=== PATIENT | female | born 1960 | race American Indian/Alaskan Native ===

== ENCOUNTER 2017-09-20 19:08 | Observation (INO) | payer OTHER, SELFPAY ==
[2017-09-20] VITALS (8 sets, daily range): BP systolic 83–130; BP diastolic 48–79; PULSE 84–115; RESP 17–27; TEMP 37.1; O2SAT 94–100; BMI 19.5
--- NOTE | 2017-09-20 19:49 | DI.RAD.S_ITS ---
PROCEDURE: XR CHEST 2V INDICATIONS: cough, sob TECHNIQUE: 2 views of the chest were acquired. COMPARISON: None. FINDINGS: Surgical changes and devices: None. Lungs and pleura: No pleural effusions or pneumothorax. Lungs are clear. Mediastinum: Mediastinal contours are normal. Heart size is normal. Bones and chest wall: No suspicious bony abnormalities. Soft tissues appear unremarkable. IMPRESSION: No acute cardiopulmonary disease process. Dictated by: Flor Seymour MD, PhD on 09/20/2017 at 20:59 Approved by: Flor Seymour MD, PhD on 09/20/2017 at 21:00
[2017-09-20] MEDS: ALBUTEROL/IPRATROPIUM 3 ML AMPUL INH ×3 (19:59)
--- NOTE | 2017-09-20 19:59 | PC.NURSE ---
Persistent cough x2 days, increasing soa, pt reports ran out of prn albuterol, coarse/wheezing bilat on ausc, reports home temp of 100.1f, denies vomiting/diarrhea/cp or other sx
[2017-09-20] MEDS: SODIUM CHLORIDE 0.9% 1,000 ML 1000 ML IV (21:39)
[2017-09-20] MEDS: DEXAMETHASONE 4 MG TABLET 16 MG PO (21:40)
[2017-09-20] MEDS: AZITHROMYCIN 250 MG TABLET 500 MG PO (21:40)
[2017-09-20 21:41] LABS: Add Manual Diff / Slide Review NO; Basophils Percent Auto 0.5 % (0-2); Eosinophils Percent Auto 1.7 % (2-4); Hematocrit 45.5 % (36-46); Hemoglobin 15.3 g/dL (12.0-16.0); Lymphocytes Percent Auto 7.1 % (25-40); Mean Corpuscular HGB Conc 33.5 % (30-36); Mean Corpuscular Hemoglobin 30.3 PG (26-34); Mean Corpuscular Volume 90.3 fL (80-100); Monocytes Percent Auto 4.6 % (3-14); Neutrophils Absolute Auto 11300 /uL (3000-5900); Neutrophils Percent Auto 86.1 % (50-75); Platelet Count 232 X10^3/uL (150-400); Red Blood Cell Count 5.04 X10^6/uL (4.0-5.2); Red Cell Distribution Width 13.3 % (11.6-14.8); White Blood Cell Count 13.1 X10^3/uL (4.5-11.0)
[2017-09-20 21:49] LABS: BUN Creatinine Ratio 14.4 (6-22); Blood Urea Nitrogen 13 mg/dL (7-17); Calcium 9.3 mg/dL (8.4-10.2); Carbon Dioxide 26 mmol/L (22-32); Chloride 104 mmol/L (98-107); Estimated Glomerular Filt Rate > 60.0 mL/min (>60); Glucose 158 mg/dL (70-100); Sodium 142 mmol/L (137-145)
[2017-09-20 21:52] LABS: D Dimer < 200 ng/mL (<230); HEMOLYSIS 52 (0-50)
[2017-09-20 21:55] LABS: Potassium 2.6 mmol/L (3.4-5.1)
[2017-09-20 22:02] LABS: Troponin I < 0.012 ng/mL (0.01-0.034)
[2017-09-20] MEDS: PROMETHAZINE 12.5 MG in SODIUM CHLORIDE 0.9% 50 ML 202 ML IV (22:24)
--- NOTE | 2017-09-20 22:39 | PC.NURSE ---
low bp 86sys notified, pt reports relief from SOA following neb treatments, reports continuing nausea, denies pain or discomfort
[2017-09-20] MEDS: MAGNESIUM SULFATE 2 GM/50 ML PIGGYBACK IV (23:19)
[2017-09-20] MEDS: POTASSIUM CHLORIDE IN WATER 40 MEQ/400 ML PIGGYBACK 100 MEQ IV (23:19)
[2017-09-20 23:28] LABS: Lactate (Lactic Acid) 2.6 mmol/L (0.7-2.1)
[2017-09-20 23:57] LABS: Procalcitonin < 0.05 ng/mL (<0.5)
[2017-09-20 23:58] LABS: Magnesium 1.8 mg/dL (1.6-2.3)
[2017-09-21] VITALS (10 sets, daily range): BP systolic 86–109; BP diastolic 48–73; PULSE 62–92; RESP 16–18; TEMP 36.7–38; O2SAT 91–99; BMI 19.5
[2017-09-21] MEDS: SODIUM CHLORIDE 0.9% 1,000 ML 1000 ML IV ×2 (00:36→04:00)
[2017-09-21 03:16] LABS: Reflexed Lactate in 2 Hours Y
[2017-09-21 03:26] LABS: Lactate 2HR (Lactic Acid Rflx) 2.5 mmol/L (0.7-2.1)
[2017-09-21 03:56] LABS: RBC Urine None Seen (0-5/HPF)
[2017-09-21 03:58] LABS: Appearance Urine UA CLEAR; Bilirubin Urine UA NEGATIVE (NEGATIVE); Color Urine UA YELLOW; Glucose Urine UA NEGATIVE (Normal); Ketones Urine UA NEGATIVE (NEGATIVE); Leukocyte Esterase Urine UA 1+ (NEGATIVE); Nitrite Urine UA Negative (Negative); Occult Blood Urine UA NEGATIVE (Negative); Protein Urine UA NEGATIVE (Negative); Specific Gravity Urine UA >=1.030 (1.000-1.035); Urobilinogen Urine UA 0.2 E.U./dL (0.2)
[2017-09-21 04:04] LABS: Bacteria Urine Moderate (10-30); WBC Urine 10-30/HPF (0-5/HPF)
[2017-09-21 04:05] LABS: Culture Indicated Urine Specimen Cultured; Mucus Urine 1+ (Negative); Squamous Epithelial Cell Urine 1-5 /HPF
[2017-09-21 04:19] LABS: BUN Creatinine Ratio 14.3 (6-22); Blood Urea Nitrogen 10 mg/dL (7-17); Calcium 8.2 mg/dL (8.4-10.2); Carbon Dioxide 20 mmol/L (22-32); Chloride 112 mmol/L (98-107); Cholesterol 140 mg/dL (140-199); Estimated Glomerular Filt Rate > 60.0 mL/min (>60); Glucose 137 mg/dL (70-100); HDL Cholesterol 48 mg/dL (40-60); HEMOLYSIS < 15 (0-50); LDL Cholesterol Calculated 85 mg/dL (<100); Lipase 49 U/L (23-300); Potassium 4.4 mmol/L (3.4-5.1); Sodium 142 mmol/L (137-145); Triglycerides 34 mg/dL (35-150)
--- NOTE | 2017-09-21 04:31 | ED.URI ---
HPI - URI/Sore Throat General Chief Complaint: Upper Respiratory Symptoms Stated Complaint: cough,trouble breathing,cold Time Seen by Provider: 09/20/17 19:21 History of Present Illness HPI Narrative: HPI 57-year-old female with a history of congenital COPD and exercise-induced asthma presents for evaluation of 4-5 days of nonproductive cough, wheezing, shortness of breath after being exposed to the family member with a URI. Patient also reports a history of a TBI, she is a long-standing pattern of secondary vertiginous symptoms, whenever she is coughing this will exacerbate her vertiginous symptoms leading to emesis. Patient reports that she has had her typical exacerbation of this nausea and emesis over the last 2 to 3 days with her heavy coughing. * PE risk factors: denies recent immobilization, leg trauma, estrogen use, surgery in the last four weeks, hemoptysis, or malignancy in the last 6 months. Notes a family history of unprovoked DVTs. * Smoking: distant social smoking history * Inhaler(s): albuterol, out of current prescription. * CHF: denies weight gain, orthopnea, or diuretic use. M/S/F/SocHx notable for: please see HPI; remainder reviewed with patient and in chart. ROS: Negative constitutional, eye, cardiovascular, pulmonary, GI, , MSK, skin, neurologic, psychiatric, endocrine unless noted in the HPI. Exam Gen: pleasant, uncomfortable appearing, frequent nonproductive cough and faintly audible wheezing. HEENT: NC, AT, PEERL, EOMI, trachea midline. Resp: diffuse expiratory wheezing throughout all lung moore, mildly increased work of breathing. Card: RRR with no M/R/G, no crackles in lung bases, no pedal edema, no JVD appreciated. GI: NT/ND Vascular: Both ankles, calves, and thighs of equal size, no calf tenderness to palpation bilaterally. MSK: No chest wall TTP. No visible deformities, strength and tone WNL. Skin: Normal color with no visible lesions. Neuro: AO x 3, no facial asymmetry, vision and hearing WNL. Psych: Mood and affect appropriate. Labs / Imaging (pertinent): WBC 13.1, Hb 15.3, Na 142, K 2.6, magnesium 1.8, lactic acid 2.6 TSH 10.40, free T4 0.0, troponin <0.012, pro-calcitonin <0.05, d-dimer <200 EKG: SR at 89 bpm, no WI segment depressions, no new ST segment changes, new LBBB, or T-wave changes that would suggest acute ischemia. CXR: No acute cardiopulmonary disease process. UA - 1+ leukocyte esterase, 10-30 WBCs, 1-5 squamous epithelial cells, 10-30 bacteria, negative nitrate. MDM Previous chart, nursing note, and vitals reviewed. A: 57-year-old female with a history of congenital COPD and exercise-induced asthma presents for evaluation of 4-5 days of nonproductive cough, wheezing, shortness of breath after being exposed to the family member with a URI. DDx: pneumonia, reactive airway disease / COPD / Asthma, bronchitis, pneumothorax, anxiety, PE, CHF, pleural effusion, pericardial effusion, ACS. Evaluation: suspect a viral trigger of the patient's COPD exacerbation, chest x-ray without focal infiltrate, pro-calcitonin negative, mild leukocytosis that was initially suspected to be secondary to stress demargination and/or the viral process. Patient was given DuoNeb ?3, 500 mg azithromycin, 12 mg dexamethasone given for symptomatic treatment. As a patient endorsed mild nausea secondary to her TBI exacerbation (patient's long-standing history of nausea and vomiting when her TBI is exacerbated by coughing - as she is been doing for the last several days) she was initially thought to have dehydration and hypokalemia secondary to the patient's nausea and vomiting. The patient rehydrated (2 L NS), given potassium and magnesium supplementation, and a repeat lactic was drawn, this remained elevated at 2.5. Repeat evaluation with patient remaining comfortable, no clear evidence of active infectious process, but concern for leukocytosis and an ongoing lactic acid elevation led to expansion the differential. Blood cultures drawn, urinalysis was obtained, this is consistent with infection, tentatively the patient is thought to have sepsis secondary to a UTI. Ceftriaxone given to complete coverage for a UTI. In intrabdominal source was considered, but as the patient had no abdominal tenderness on initial evaluation or on repeat at time of admission this is felt to be unlikely, emerging imaging not presently warranted. With regards to alternate causes of the patient's symptoms, strongly doubt PE given the low pretest probability (Well's score 0), and a negative d-dimer which is appropriate for PE rule out/risk stratification. Exam and imaging without evidence of CHF. Impression: COPD exacerbation, UTI, sepsis (please reference below for remainder of encounter information) Evan' (Signs & Sx of DVT - 0, PE is #1 or equally likelihood - 0, HR > 100 - 0, immobilization of >=3 days or surgery in last 28 days - 0, prior DVT or PE - 0, hemoptysis - 0, malignancy w/ tx in last 6 mo or palliative - 0). Critical Care Time Organ system(s): Cardiopulmonary Intervention: Assessment of the patient, interpretation of studies, communication related to patient care. Time: 30 minutes were spent directly related to patient care exclusive of separately billed procedures. Related Data Home Medications Medication Instructions Recorded Confirmed levothyroxine [Synthroid] #0 10/20/16 meclizine #0 10/20/16 ondansetron HCl [Zofran] 8 mg PO TID #0 10/20/16 Previous Rx's Medication Instructions Recorded ciprofloxacin HCl [Cipro] 500 mg PO BID #20 tab 10/20/16 Allergies Allergy/AdvReac Type Severity Reaction Status Date / Time Sulfa (Sulfonamide Allergy Intermediate Unverified 07/01/17 12:57 Antibiotics) [SULFA (SULFONAMIDE ANTIBIOTICS)] NARCOTICS Allergy Intermediate Uncoded 07/01/17 12:57 STEROIDS Allergy Intermediate Uncoded 07/01/17 12:57 [facility] Social History Smoking Status: Never smoker Exam Initial Vital Signs Initial Vital Signs: Vital Signs Temperature 98.8 F 09/20/17 19:11 Pulse Rate 106 H 09/20/17 19:11 Respiratory Rate 24 09/20/17 19:11 Blood Pressure 116/72 09/20/17 19:11 Pulse Oximetry 95 09/20/17 19:11 Course Orders Ordered: ED Orders 09/20/17 19:49 XR chest 2V Stat 09/20/17 19:50 EKG-12 Lead Stat 09/20/17 21:25 Basic Metabolic Panel Stat Complete Blood Count AUTO DIFF Stat D Dimer Stat Free T4 Free Thyroxine Stat Magnesium Stat Procalcitonin Stat Thyroid Stimulating Hormone Stat Troponin I Stat 09/20/17 23:10 Lactate (Lactic Acid) Stat 09/21/17 03:00 Lactate 4HR (Lactic Acid Rflx) Stat 09/21/17 03:45 Urinalysis and Microscopic Stat Urine Culture Stat 09/21/17 03:56 Basic Metabolic Panel Stat Blood Culture Stat Lipase Stat Lipid Panel Stat Albuterol/Ipratropium (Duoneb) 3 ml INH Q1H PRN PRN Reason: Shortness Of Breath Last Admin: 09/20/17 19:59 Dose: 3 ml Potassium Phosphate 10 mmol/ (Sodium Chloride) 1,003.3333 mls @ 100 mls/hr IV CONT MAURICE Last Admin: 09/20/17 23:19 Dose: Not Given Ceftriaxone Sodium/Dextrose (Rocephin) 1 gm in 50 mls @ 100 mls/hr IV NOW ONE Stop: 09/21/17 04:50 Discontinued Medications Albuterol/Ipratropium (Duoneb) 3 ml INH NOW ONE Stop: 09/20/17 19:42 Last Admin: 09/20/17 19:59 Dose: 3 ml Albuterol/Ipratropium (Duoneb) 3 ml INH NOW ONE Stop: 09/20/17 19:50 Last Admin: 09/20/17 19:59 Dose: 3 ml Azithromycin (Zithromax) 500 mg PO NOW ONE Stop: 09/20/17 19:50 Last Admin: 09/20/17 21:40 Dose: 500 mg Dexamethasone (Decadron) 16 mg PO NOW ONE Stop: 09/20/17 19:50 Last Admin: 09/20/17 21:40 Dose: 16 mg Sodium Chloride (Normal Saline 0.9%) 1,000 mls @ 1,000 mls/hr IV BOLUS ONE Stop: 09/20/17 20:48 Last Infusion: 09/20/17 22:42 Dose: 0 mls/hr Admin: 09/20/17 21:39 Dose: 1,000 mls/hr Magnesium Sulfate (Magnesium Sulfate) 2 gm in 50 mls @ 25 mls/hr IV NOW ONE Stop: 09/21/17 00:04 Last Infusion: 09/21/17 01:10 Dose: 0 mls/hr Admin: 09/20/17 23:19 Dose: 25 mls/hr Promethazine HCl 12.5 mg/ (Sodium Chloride) 50.5 mls @ 202 mls/hr IV NOW ONE Stop: 09/20/17 22:24 Last Infusion: 09/20/17 22:43 Dose: 0 mls/hr Admin: 09/20/17 22:24 Dose: 202 mls/hr POTASSIUM CHLORIDE IN WATER (Potassium Cl 10 Meq/100 Ml Letty) 40 meq in 400 mls @ 100 mls/hr IV CONT ONE Stop: 09/21/17 02:54 Last Admin: 09/20/17 23:19 Dose: 100 mls/hr Sodium Chloride (Normal Saline 0.9%) 1,000 mls @ 1,000 mls/hr IV BOLUS ONE Stop: 09/21/17 01:00 Last Infusion: 09/21/17 03:38 Dose: 0 mls/hr Admin: 09/21/17 00:36 Dose: 1,000 mls/hr Sodium Chloride (Normal Saline 0.9%) 1,000 mls @ 1,000 mls/hr IV BOLUS ONE Stop: 09/21/17 01:17 Last Admin: 09/21/17 04:00 Dose: 1,000 mls/hr Meclizine HCl (Antivert) 50 mg PO NOW ONE Stop: 09/21/17 00:02 Potassium Chloride (Potassium Chloride) 40 meq PO NOW ONE Stop: 09/20/17 22:06 Vital Signs - 8 hr 09/20/17 21:01 09/20/17 22:29 09/20/17 22:38 Pulse Rate 98 H 84 88 Respiratory Rate 19 17 24 Blood Pressure [Left Arm] 103/58 L 89/52 L 86/53 L Pulse Oximetry 94 98 97 09/20/17 23:13 09/21/17 03:18 09/21/17 04:19 Pulse Rate 87 81 92 H Respiratory Rate 17 17 16 Blood Pressure [Left Arm] 83/48 L 86/52 L 88/59 L Pulse Oximetry 95 96 98 MDM - URI/Sore Throat Lab Data Result diagrams: 09/20/17 21:25 09/21/17 03:56 Lab Results 09/20/17 09/20/17 09/20/17 Range/Units 21:25 21:25 21:25 WBC 13.1 H (4.5-11.0) X10^3/uL RBC 5.04 (4.0-5.2) X10^6/uL Hgb 15.3 (12.0-16.0) g/dL Hct 45.5 (36-46) % MCV 90.3 (80-100) fL MCH 30.3 (26-34) PG MCHC 33.5 (30-36) % RDW 13.3 (11.6-14.8) % Plt Count 232 (150-400) X10^3/uL Neut % (Auto) 86.1 H (50-75) % Lymph % (Auto) 7.1 L (25-40) % [place]osa % (Auto) 4.6 (3-14) % Eos % (Auto) 1.7 L (2-4) % Baso % (Auto) 0.5 (0-2) % Neut # (Auto) 03090 H (9783-6747) /uL D-Dimer < 200 (<230) ng/mL Sodium 142 (137-145) mmol/L Potassium 2.6 L* (3.4-5.1) mmol/L Chloride 104 (98-107) mmol/L Carbon Dioxide 26 (22-32) mmol/L BUN 13 (7-17) mg/dL Creatinine 0.90 (0.52-1.04) mg/dL Estimated GFR > 60.0 (>60) mL/min BUN/Creatinine Ratio 14.4 (6-22) Glucose 158 H (70-100) mg/dL Lactate (0.7-2.1) mmol/L Calcium 9.3 (8.4-10.2) mg/dL Magnesium (1.6-2.3) mg/dL Troponin I (0.01-0.034) ng/mL Triglycerides (35-150) mg/dL Cholesterol (140-199) mg/dL LDL Cholesterol, Calc (<100) mg/dL HDL Cholesterol (40-60) mg/dL Lipase (23-300) U/L Procalcitonin (<0.5) ng/mL TSH (0.47-4.68) uIU/mL Free T4 (0.78-2.19) ng/dL Urine Color Urine Appearance Urine pH (4.5-8.0) Ur Specific Gilberts (1.000-1.035) Urine Protein (Negative) Urine Glucose (UA) (Normal) g/dL Urine Ketones (NEGATIVE) Urine Occult Blood (Negative) Urine Nitrate (Negative) Urine Bilirubin (NEGATIVE) Urine Urobilinogen (0.2) E.U./dL Ur Leukocyte Esterase (NEGATIVE) Urine RBC (0-5/HPF) Urine WBC (0-5/HPF) Ur Squamous Epith Cells Urine Bacteria (None) Urine Mucus (Negative) Ur Culture Indicated? Micro UA Comment 09/20/17 09/20/17 09/20/17 Range/Units 21:25 21:25 21:25 WBC (4.5-11.0) X10^3/uL RBC (4.0-5.2) X10^6/uL Hgb (12.0-16.0) g/dL Hct (36-46) % MCV (80-100) fL MCH (26-34) PG MCHC (30-36) % RDW (11.6-14.8) % Plt Count (150-400) X10^3/uL Neut % (Auto) (50-75) % Lymph % (Auto) (25-40) % [place] % (Auto) (3-14) % Eos % (Auto) (2-4) % Baso % (Auto) (0-2) % Neut # (Auto) (7168-9308) /uL D-Dimer (<230) ng/mL Sodium (137-145) mmol/L Potassium (3.4-5.1) mmol/L Chloride (98-107) mmol/L Carbon Dioxide (22-32) mmol/L BUN (7-17) mg/dL Creatinine (0.52-1.04) mg/dL Estimated GFR (>60) mL/min BUN/Creatinine Ratio (6-22) Glucose (70-100) mg/dL Lactate (0.7-2.1) mmol/L Calcium (8.4-10.2) mg/dL Magnesium (1.6-2.3) mg/dL Troponin I < 0.012 (0.01-0.034) ng/mL Triglycerides (35-150) mg/dL Cholesterol (140-199) mg/dL LDL Cholesterol, Calc (<100) mg/dL HDL Cholesterol (40-60) mg/dL Lipase (23-300) U/L Procalcitonin < 0.05 (<0.5) ng/mL TSH 10.40 H (0.47-4.68) uIU/mL Free T4 0.80 (0.78-2.19) ng/dL Urine Color Urine Appearance Urine pH (4.5-8.0) Ur Specific Gilberts (1.000-1.035) Urine Protein (Negative) Urine Glucose (UA) (Normal) g/dL Urine Ketones (NEGATIVE) Urine Occult Blood (Negative) Urine Nitrate (Negative) Urine Bilirubin (NEGATIVE) Urine Urobilinogen (0.2) E.U./dL Ur Leukocyte Esterase (NEGATIVE) Urine RBC (0-5/HPF) Urine WBC (0-5/HPF) Ur Squamous Epith Cells Urine Bacteria (None) Urine Mucus (Negative) Ur Culture Indicated? Micro UA Comment 09/20/17 09/20/17 09/21/17 Range/Units 21:25 23:10 03:00 WBC (4.5-11.0) X10^3/uL RBC (4.0-5.2) X10^6/uL Hgb (12.0-16.0) g/dL Hct (36-46) % MCV (80-100) fL MCH (26-34) PG MCHC (30-36) % RDW (11.6-14.8) % Plt Count (150-400) X10^3/uL Neut % (Auto) (50-75) % Lymph % (Auto) (25-40) % [place] % (Auto) (3-14) % Eos % (Auto) (2-4) % Baso % (Auto) (0-2) % Neut # (Auto) (9495-5155) /uL D-Dimer (<230) ng/mL Sodium (137-145) mmol/L Potassium (3.4-5.1) mmol/L Chloride (98-107) mmol/L Carbon Dioxide (22-32) mmol/L BUN (7-17) mg/dL Creatinine (0.52-1.04) mg/dL Estimated GFR (>60) mL/min BUN/Creatinine Ratio (6-22) Glucose (70-100) mg/dL Lactate 2.6 H 2.5 H (0.7-2.1) mmol/L Calcium (8.4-10.2) mg/dL Magnesium 1.8 (1.6-2.3) mg/dL Troponin I (0.01-0.034) ng/mL Triglycerides (35-150) mg/dL Cholesterol (140-199) mg/dL LDL Cholesterol, Calc (<100) mg/dL HDL Cholesterol (40-60) mg/dL Lipase (23-300) U/L Procalcitonin (<0.5) ng/mL TSH (0.47-4.68) uIU/mL Free T4 (0.78-2.19) ng/dL Urine Color Urine Appearance Urine pH (4.5-8.0) Ur Specific Gilberts (1.000-1.035) Urine Protein (Negative) Urine Glucose (UA) (Normal) g/dL Urine Ketones (NEGATIVE) Urine Occult Blood (Negative) Urine Nitrate (Negative) Urine Bilirubin (NEGATIVE) Urine Urobilinogen (0.2) E.U./dL Ur Leukocyte Esterase (NEGATIVE) Urine RBC (0-5/HPF) Urine WBC (0-5/HPF) Ur Squamous Epith Cells Urine Bacteria (None) Urine Mucus (Negative) Ur Culture Indicated? Micro UA Comment 09/21/17 09/21/17 Range/Units 03:45 03:56 WBC (4.5-11.0) X10^3/uL RBC (4.0-5.2) X10^6/uL Hgb (12.0-16.0) g/dL Hct (36-46) % MCV (80-100) fL MCH (26-34) PG MCHC (30-36) % RDW (11.6-14.8) % Plt Count (150-400) X10^3/uL Neut % (Auto) (50-75) % Lymph % (Auto) (25-40) % [place] % (Auto) (3-14) % Eos % (Auto) (2-4) % Baso % (Auto) (0-2) % Neut # (Auto) (8612-0795) /uL D-Dimer (<230) ng/mL Sodium 142 (137-145) mmol/L Potassium 4.4 D (3.4-5.1) mmol/L Chloride 112 H (98-107) mmol/L Carbon Dioxide 20 L (22-32) mmol/L BUN 10 (7-17) mg/dL Creatinine 0.70 (0.52-1.04) mg/dL Estimated GFR > 60.0 (>60) mL/min BUN/Creatinine Ratio 14.3 (6-22) Glucose 137 H (70-100) mg/dL Lactate (0.7-2.1) mmol/L Calcium 8.2 L (8.4-10.2) mg/dL Magnesium (1.6-2.3) mg/dL Troponin I (0.01-0.034) ng/mL Triglycerides 34 L (35-150) mg/dL Cholesterol 140 (140-199) mg/dL LDL Cholesterol, Calc 85 (<100) mg/dL HDL Cholesterol 48 (40-60) mg/dL Lipase 49 (23-300) U/L Procalcitonin (<0.5) ng/mL TSH (0.47-4.68) uIU/mL Free T4 (0.78-2.19) ng/dL Urine Color Yellow Urine Appearance Clear Urine pH 5.0 (4.5-8.0) Ur Specific [place] >=1.030 H (1.000-1.035) Urine Protein Negative (Negative) Urine Glucose (UA) Negative (Normal) g/dL Urine Ketones Negative (NEGATIVE) Urine Occult Blood Negative (Negative) Urine Nitrate Negative (Negative) Urine Bilirubin Negative (NEGATIVE) Urine Urobilinogen 0.2 (0.2) E.U./dL Ur Leukocyte Esterase 1+ H (NEGATIVE) Urine RBC None seen (0-5/HPF) Urine WBC 10-30/hpf H (0-5/HPF) Ur Squamous Epith Cells 1-5 /hpf Urine Bacteria Moderate (10-30) H (None) Urine Mucus 1+ H (Negative) Ur Culture Indicated? Specimen cultured Micro UA Comment Not Reportable Discharge Plan Departure Prescriptions: No Action ondansetron HCl [Zofran] 8 MG tablet 8 mg PO TID Qty: 0 RF: 0 levothyroxine [Synthroid] 88 MCG tablet Qty: 0 RF: 0 meclizine 25 MG tablet Qty: 0 RF: 0 ciprofloxacin HCl [Cipro] 500 MG tablet 500 mg PO BID Qty: 20 RF: 0
[2017-09-21] MEDS: CEFTRIAXONE 1 GM/50 ML FROZ.PIGGY IV (05:02)
[2017-09-21] MEDS: ONDANSETRON 4 MG/2 ML INJ IV (05:04)
--- NOTE | 2017-09-21 06:30 | PC.ADMIT ---
811 [facility] Admission Note: The patient,Shannon Dozier,57 y/o, was given written information regarding hospital policies, unit procedures and contact persons. Patient's smoking status: Never smoker. Vital Signs - 8 hr 09/20/17 22:38 09/20/17 23:13 09/21/17 03:18 Temperature Pulse Rate 88 87 81 Respiratory Rate 24 17 17 Blood Pressure Blood Pressure [Left Arm] 86/53 L 83/48 L 86/52 L Pulse Oximetry 97 95 96 09/21/17 04:19 09/21/17 05:33 Temperature 98.8 F Pulse Rate 92 H 80 Respiratory Rate 16 18 Blood Pressure 96/53 L Blood Pressure [Left Arm] 88/59 L Pulse Oximetry 98 95 Patient A/Ox3 when admitted to ICU, goes by [facility] [place], able to transfer to bed with SBA and participate in care. BP 96/53(69), other VSS. Has occas cough with intermittent nausea, no vomitting. IV fluids NS @ 125ml/hr, IV Abx finishing. See assessment notes.
[2017-09-21] MEDS: ALBUTEROL/IPRATROPIUM 3 ML AMPUL INH ×3 (07:25→15:23)
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
[2017-09-21] MEDS: SODIUM CHLORIDE 0.9% 1,000 ML 125 ML IV (10:45)
[2017-09-21] MEDS: LEVOTHYROXINE 88 MCG TABLET PO (12:03)
--- NOTE | 2017-09-21 13:33 | PC.NURSE ---
pt with persistant non-productive cough - declines cough rx at this time-also, refused lovenox even after full explanation of benefits and risks of rx
[2017-09-21] MEDS: CODEINE/GUAIFENESIN LIQUID 5 ML PO ×2 (13:54→17:50)
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
[2017-09-21] MEDS: AZITHROMYCIN 250 MG TABLET 500 MG PO (17:50)
[2017-09-21] MEDS: ONDANSETRON 4 MG ODT 8 MG PO (19:47)
[2017-09-21] MEDS: SODIUM CHLORIDE 0.9% FLUSH 10 ML IV (21:06)
--- NOTE | 2017-09-21 21:55 | PC.NURSE ---
Patient nauseated within an hour after taking oral antibiotic. Medicated with Zofran po with some improvement- patient states she always get nauseated with antibiotics. Suggest premedicate prior to next antiobiotic dose. Remains unstable and wobbley on feet when up out of bed- patient states this is due to her TBI.
[2017-09-22] VITALS (10 sets, daily range): BP systolic 92–122; BP diastolic 47–77; PULSE 71–92; RESP 16–20; TEMP 36.9–38.4; O2SAT 92–97
[2017-09-22] MEDS: ALBUTEROL/IPRATROPIUM 3 ML AMPUL INH ×4 (00:53→20:07)
[2017-09-22] MEDS: LEVOTHYROXINE 88 MCG TABLET PO (05:43)
--- NOTE | 2017-09-22 08:41 | PM.PN.1 ---
Subjective Date Patient Seen: 09/22/17 Time Patient Seen: 08:41 Interval history: Patient states she is feeling worse today. Lying on her side in bed with complaints of headache, nausea and dry heaves. She has also developed a fever of 101.2? this morning. Her white count this morning is normal. Exam Vital Signs (past 8 hours): - 09/22/17 00:53 09/22/17 05:00 09/22/17 07:40 Temperature 98.4 F 101 F H Pulse Rate 81 90 Respiratory Rate 16 18 Blood Pressure 92/52 L 99/65 Pulse Oximetry 97 95 92 09/22/17 08:01 Temperature Pulse Rate 90 Respiratory Rate 18 Blood Pressure 108/77 Pulse Oximetry Oxygen Delivery Method Room Air Const General: cooperative and anxious Nutritional Appearance: thin Orientation: alert, awake and oriented x3 HENMT Head: normal to inspection, normocephalic and atraumatic Eyes General: appearance normal, both eyes and all related structures Pupils: PERRL Neck Neck: normal visual inspection, trachea midline and supple Other: No lymphedema Chest Chest: normal inspection of the chest Resp Effort & Inspection: normal respiratory effort and able to speak in complete sentences Other: Scattered mid and end-expiratory wheezes. Scattered rhonchi. Nonproductive cough. Room air with saturations running 92-97. Cardio Rhythm: regular rhythm Heart Sounds: S1 normal and S2 normal Other: No rubs clicks or murmurs appreciated GI Inspection: normal to inspection Palpation: soft Auscultation: normal bowel sounds Other: Nontender to palpation. No masses. Other: Unremarkable Back/Spine/Pelvis Other: Unremarkable Skin General: no rashes or lesions noted, dry skin and warm Other: Numerous tattoos noted Neuro General: alert, awake and oriented x3 Cognition: normal cognition Speech: speech normal Motor: muscle tone normal throughout Sensory Exam: no sensory deficits noted Extrem General: normal to inspection, capillary refill normal and no pedal edema Objective Labs Result Diagrams: 09/22/17 09:04 09/22/17 09:04 Labs: Laboratory Results - last 24 hr 09/21/17 09:20 Thyroxine (T4) 5.80 Assessment & Plan Plan: Assessment/Plan Narrative: 1. Acute chronic obstructive pulmonary disease exacerbation. She has a low-grade temperature of 101.2? this morning but her white count is normal. Probable viral exacerbation of her COPD. I will continue to treat with Azithromycin pending final culture results and bronchodilators. 2. Dehydration due to 1., exacerbated by nausea and vomiting due to previous traumatic brain injury with chronic vertigo. No overt evidence of sepsis despite borderline elevated lactate. Continue IV fluids and antiemetics as needed. Repeat BMP today. 3. Hypothyroidism with elevated TSH. She states she has not been taking her Synthroid at home for the past couple weeks because she ran out of the medication. She was scheduled to meet with her PCP later this week and was going to restarted. Continue routine Synthroid. 4. Traumatic brain injury. She is denying vertigo this morning but complains of a vicelike mold stamper and repairer headache over the frontal part of her head. Will give her 650 mg Tylenol see if this relieves the headache. 5. Questionable urinary tract infection. She has no focal urinary symptoms. This may represent contamination. Preliminary report shows no growth. Will continue to follow. 6. DVT prophylaxis. Treat with low-dose Lovenox. 7. Code status: Full code. 8. Disposition: Continue on observation. Possible discharge home tomorrow if doing well.
[2017-09-22] MEDS: SODIUM CHLORIDE 0.9% 1,000 ML 125 ML IV ×2 (09:03→17:34)
[2017-09-22] MEDS: ACETAMINOPHEN 325 MG TABLET 650 MG PO (09:03)
[2017-09-22] MEDS: SODIUM CHLORIDE 0.9% FLUSH 10 ML IV (09:04)
[2017-09-22 09:15] LABS: Add Manual Diff / Slide Review NO; Basophils Percent Auto 0.5 % (0-2); Eosinophils Percent Auto 1.6 % (2-4); Hematocrit 39.5 % (36-46); Lymphocytes Percent Auto 13.8 % (25-40); Mean Corpuscular Hemoglobin 29.7 PG (26-34); Mean Corpuscular Volume 90.1 fL (80-100); Monocytes Percent Auto 9.5 % (3-14); Neutrophils Absolute Auto 4600 /uL (3000-5900); Neutrophils Percent Auto 74.6 % (50-75); Platelet Count 196 X10^3/uL (150-400); Red Blood Cell Count 4.38 X10^6/uL (4.0-5.2); Red Cell Distribution Width 13.7 % (11.6-14.8); White Blood Cell Count 6.2 X10^3/uL (4.5-11.0)
[2017-09-22 09:28] LABS: BUN Creatinine Ratio 8.9 (6-22); Blood Urea Nitrogen 8 mg/dL (7-17); Carbon Dioxide 25 mmol/L (22-32); Chloride 106 mmol/L (98-107); Estimated Glomerular Filt Rate > 60.0 mL/min (>60); Glucose 100 mg/dL (70-100); HEMOLYSIS < 15 (0-50); Potassium 3.7 mmol/L (3.4-5.1); Sodium 142 mmol/L (137-145)
--- NOTE | 2017-09-22 11:00 | PT.IIE ---
Physical Therapy Inpatient Evaluation/Re-Eval M1 PT/OT-IP Prior Functional Status Start: 09/22/17 12:16 Freq: NEEDED Status: Active Protocol: Document 09/22/17 11:00 AB (Rec: 09/22/17 12:34 AB [email or web address]) Medical Review Prior Functional Status Medical History Reviewed Yes Mobility and Gait pt stated that she is modified independent with all mobilities and ambulation without AD indoors but with occasional use of bilateral forearm crutches, uses forearm cruthces for outdoor mobility but stated that she uses a walking stick when around her yard/arm since she tends to carry things on her other hand . Prior Functional Level (Other details) stated that she has h/o TBI with chronic vertigo pt goes by Bettie Social History Household Members children friend(s) Living Arrangements House Number of Floors (Floors) One Floor Number of Stairs To Enter/Railing? 1 step entry Home Environment Standard Height Toilet Tub/Shower Employment Status Retired M2 PT-IP Current Condition Start: 09/22/17 12:16 Freq: NEEDED Status: Active Protocol: Document 09/22/17 11:00 AB (Rec: 09/22/17 12:34 AB [email or web address]) Physical Therapy Current Condition Current Condition Evaluation Date 09/22/17 Treatment Diagnosis COPD exacerbation, UTI; difficulty in walking Onset Date 09/21/17 Precautions Other Precautions falls M3 PT-IP Subjective Start: 09/22/17 12:16 Freq: NEEDED Status: Active Protocol: Document 09/22/17 11:00 AB (Rec: 09/22/17 12:34 AB [email or web address]) Subjective Physical Therapy Visit Type Type Initial Evaluation Visit Start Time 11:00 Visit Stop Time 11:30 Total Visit Minutes 30 Number of E D TECH Visits 0 Physical Therapy Visit Comments Patient Comments i can try to do therapy but i am not feeling well today M4 PT-IP Mobility and Gait Start: 09/22/17 12:16 Freq: NEEDED Status: Active Protocol: Document 09/22/17 11:00 AB (Rec: 09/22/17 12:34 AB [email or web address]) PT-Bed Mobility Assessment Supine to Sit Supine to Sit Standby Assistance Sit to Supine Sit to Supine Standby Assistance PT-Transfer Assessment Sit to and From Stand Sit to and from Stand Contact Guard Assistance Equipment Transfer Assistive Device Gait Belt Front Wheeled Walker Orthotic/Prosthetic Devices or Brace: Yes Gait Assessment Gait Gait Assistance Required: Minimum Assistance Distance (Feet) (feet) 20 Able to Maintain Weight Bearing Status Yes During Gait Assistive Devices Assistive Device Gait Belt Front Wheeled Walker Orthotic/Prosthetic Devices or Brace: No Gait Deviations General Gait Pattern Ataxic Factors Limiting Gait Function Factors Limiting Gait Function Decreased Activity Tolerance Decreased Strength Poor Balance Poor Safety Awareness PT-Balance Assessment Sitting Balance and Reactions Static Sitting Balance Ability Good Dynamic Sitting Balance Ability Good Standing Balance and Reactions Static Standing Balance Ability Fair Dynamic Standing Balance Ability Fair M5 PT-IP Objective Assessments Start: 09/22/17 12:16 Freq: NEEDED Status: Active Protocol: Document 09/22/17 11:00 AB (Rec: 09/22/17 12:34 AB [email or web address]) Orientation Orientation/Cognition Level of Alertness Alert Orientation Name Age Birthday Month Date Year Day of Week Place Situation Gross Range of Motion Lower Extremity ROM Assessment Within Functional Limits Strength Lower Extremity Strength Assessment Within Functional Limits M6 PT-IP Treatment Start: 09/22/17 12:16 Freq: NEEDED Status: Active Protocol: Document 09/22/17 11:00 AB (Rec: 09/22/17 12:34 AB [email or web address]) Physical Therapy Treatment Education Education Provided Safety Other Treatments Other Treatment Performed FWW: pt said that she knows where she can get one M7 PT-IP Assessment and Plan Start: 09/22/17 12:16 Freq: NEEDED Status: Active Protocol: Document 09/22/17 11:00 AB (Rec: 09/22/17 12:34 AB [email or web address]) PT Summary Assessment and Plan Potential Rehabilitation Potential Fair Status of Condition at Evaluation Evolving Summary Impairments Pain Strength Balance Bed Mobility Transfers Gait Activity Tolerance Assessment Summary pt requiring one person assist with mobility using FWW and presents with decrease activity tolerance. stated that her daughter and friend can help her at home. Goals Bed Mobility Goal Independent Transfer Goal Independent Gait Goal Independent Gait Distance 150 Other Goals up/down 1 step using FWW/ forearm crutches Frequency of Treatment Frequency Of Treatment Once a Day Treatment Plan Physical Therapy Treatment Plan Bed Mobility Training Transfer Training Gait Training Therapeutic Exercise Balance Retraining Discharge Planning Neuromuscular Re-ed Coordination Retraining Other Recommendations and Next Treatment ambulation Focus Recommendations To Nursing Amount of Assist Needed 1 Person Assist Discharge Recommendations PT Discharge Recommendations Home with Assistance
[2017-09-22] MEDS: AZITHROMYCIN 250 MG TABLET 500 MG PO (18:27)
--- NOTE | 2017-09-22 20:57 | PC.NURSE ---
june note Pt doing well until 19:45, when small emesis of water happened with much retching. Called Dr. Solomon to get orders to change Zofran from PO to IV. Pt also c/o headache, but unable to take Tylenol yet due to nausea.
[2017-09-22] MEDS: ONDANSETRON 4 MG/2 ML INJ IV (21:42)
[2017-09-23 00:28] VITALS: BP 120/57; PULSE 68; RESP 24; TEMP 36.5; O2SAT 96
[2017-09-23] MEDS: SODIUM CHLORIDE 0.9% 1,000 ML 125 ML IV (01:38)
[2017-09-23 04:42] VITALS: BP 107/62; PULSE 71; RESP 20; TEMP 37; O2SAT 92
[2017-09-23 05:18] LABS: Add Manual Diff / Slide Review NO; Basophils Percent Auto 0.8 % (0-2); Eosinophils Percent Auto 4.2 % (2-4); Hematocrit 36.6 % (36-46); Hemoglobin 12.2 g/dL (12.0-16.0); Lymphocytes Percent Auto 28.8 % (25-40); Mean Corpuscular HGB Conc 33.4 % (30-36); Mean Corpuscular Hemoglobin 29.9 PG (26-34); Mean Corpuscular Volume 89.7 fL (80-100); Monocytes Percent Auto 10.6 % (3-14); Neutrophils Absolute Auto 2800 /uL (3000-5900); Neutrophils Percent Auto 55.6 % (50-75); Platelet Count 175 X10^3/uL (150-400); Red Blood Cell Count 4.08 X10^6/uL (4.0-5.2); Red Cell Distribution Width 13.3 % (11.6-14.8); White Blood Cell Count 4.9 X10^3/uL (4.5-11.0)
[2017-09-23 05:38] LABS: BUN Creatinine Ratio 8.6 (6-22); Blood Urea Nitrogen 6 mg/dL (7-17); Calcium 8.4 mg/dL (8.4-10.2); Carbon Dioxide 24 mmol/L (22-32); Chloride 108 mmol/L (98-107); Estimated Glomerular Filt Rate > 60.0 mL/min (>60); Glucose 95 mg/dL (70-100); HEMOLYSIS < 15 (0-50); Potassium 3.6 mmol/L (3.4-5.1); Sodium 141 mmol/L (137-145)
[2017-09-23 07:52] VITALS: BP 105/59; PULSE 76; RESP 18; TEMP 37.3; O2SAT 95
[2017-09-23 07:57] VITALS: O2SAT 96
[2017-09-23] MEDS: SODIUM CHLORIDE 0.9% FLUSH 10 ML IV (08:49)
[2017-09-23] MEDS: LEVOTHYROXINE 88 MCG TABLET PO (08:50)
--- NOTE | 2017-09-23 09:23 | CM.DPC ---
Addendum entered by IVAN Pedro 09/23/17 15:27: ADD: Per MD, pt medically stable to d/c home today with no identified barriers to discharge. Plan: Patient discharge home today via friend POV. No SW needs at this time. IVAN Pedro Original Note: DCP Cont: Per PT, recommending home with assist of pt's Dtr and friend which pt states she has planned and set up. Per RN, pt not needing ICU status now and currently refusing RT for her COPD because she is worried about some of the medication effects. Plan: SW to continue to follow for likely home with Dtr and friend to assist. Follow for any further needs. IVAN Pedro
[2017-09-23 10:40] VITALS: O2SAT 97
--- NOTE | 2017-09-23 11:36 | PT.IPTN ---
Physical Therapy Treatment Note M2 PT-IP Current Condition Start: 09/22/17 12:16 Freq: NEEDED Status: Active Protocol: Document 09/22/17 11:00 AB (Rec: 09/22/17 12:34 AB [email or web address]) Physical Therapy Current Condition Current Condition Evaluation Date 09/22/17 Treatment Diagnosis COPD exacerbation, UTI; difficulty in walking Onset Date 09/21/17 Precautions Other Precautions falls M3 PT-IP Subjective Start: 09/22/17 12:16 Freq: NEEDED Status: Active Protocol: Document 09/23/17 11:32 GGD (Rec: 09/23/17 11:36 GGD [id number]) Subjective Physical Therapy Visit Type Type Treatment Note Visit Start Time 11:00 Visit Stop Time 11:25 Total Visit Minutes 25 Number of SETTER OFF Visits 1 Physical Therapy Visit Comments Patient Comments Pt states that she feels week, but ready to go home. M4 PT-IP Mobility and Gait Start: 09/22/17 12:16 Freq: NEEDED Status: Active Protocol: Document 09/23/17 11:32 GGD (Rec: 09/23/17 11:36 GGD [id number]) PT-Bed Mobility Assessment Supine to Sit Supine to Sit Standby Assistance Sit to Supine Sit to Supine Standby Assistance Scooting Scooting to Edge of Bed Independent PT-Transfer Assessment Sit to and From Stand Sit to and from Stand Contact Guard Assistance Gait Assessment Gait Gait Assistance Required: Minimum Assistance Distance (Feet) (feet) 40 Assistive Devices Assistive Device Gait Belt Forearm Crutches Gait Deviations General Gait Pattern Ataxic Factors Limiting Gait Function Factors Limiting Gait Function Decreased Activity Tolerance Decreased Strength Poor Balance Poor Safety Awareness M5 PT-IP Objective Assessments Start: 09/22/17 12:16 Freq: NEEDED Status: Active Protocol: Document 09/22/17 11:00 AB (Rec: 09/22/17 12:34 AB [email or web address]) Orientation Orientation/Cognition Level of Alertness Alert Orientation Name Age Birthday Month Date Year Day of Week Place Situation Gross Range of Motion Lower Extremity ROM Assessment Within Functional Limits Strength Lower Extremity Strength Assessment Within Functional Limits M6 PT-IP Treatment Start: 09/22/17 12:16 Freq: NEEDED Status: Active Protocol: Document 09/22/17 11:00 AB (Rec: 09/22/17 12:34 AB [email or web address]) Physical Therapy Treatment Education Education Provided Safety Other Treatments Other Treatment Performed FWW: pt said that she knows where she can get one M7 PT-IP Assessment and Plan Start: 09/22/17 12:16 Freq: NEEDED Status: Active Protocol: Document 09/23/17 11:32 GGD (Rec: 09/23/17 11:36 GGD [email or web address]) PT Summary Assessment and Plan Summary Assessment Summary Pt need one person assist with gait. She states that she weaker than normal, but family normally helps her. Frequency of Treatment Frequency Of Treatment Once a Day Treatment Plan Physical Therapy Treatment Plan Bed Mobility Training Transfer Training Gait Training Therapeutic Exercise Balance Retraining Discharge Planning Neuromuscular Re-ed Coordination Retraining Other Recommendations and Next Treatment ambulation Focus Recommendations To Nursing Amount of Assist Needed 1 Person Assist Discharge Recommendations PT Discharge Recommendations Home with Assistance
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
== END 2017-09-23 14:20 | disposition home or self-care (01) ==
LOC: ED 09-21 04:33 → ICU 09-21 04:57
PROVIDERS: Nurse Practitioner Acute Care; Admitting Provider Internal Medicine; Emergency Provider Emergency Medicine; Visit Provider Internal Medicine
DX: J44.1 Chronic obstructive pulmonary disease with (acute) exacerbation (principal); R05 Cough; R11.2 Nausea with vomiting, unspecified; E86.0 Dehydration; E03.9 Hypothyroidism, unspecified; Z87.820 Personal history of traumatic brain injury; J45.909 Unspecified asthma, uncomplicated
CPT/HCPCS: 36415; 36591; 71046; 80048; 80061; 81001; 83605; 83690; 83735; 84145; 84436; 84439; 84443; 84484; 85025; 85379; 87040; 87086; 87797; 93005; 94150; 94640; 96361; 96365; 96366; 96367; 96368; 97110; 97162; 97530; 99285; G0378; J1650; J2405; J2550

== ENCOUNTER 2018-01-17 13:40 | Emergency (ER) | payer OTHER, SELFPAY ==
[2017-09-21 05:35] VITALS: BMI 19.5
[2018-01-17 13:50] VITALS: BP 118/77; PULSE 75; RESP 18; TEMP 36.7; O2SAT 100; BMI 19.8
== END 2018-01-17 15:49 | disposition left against medical advice (07) ==
DX: S09.90XA Unspecified injury of head, initial encounter (principal)
CPT/HCPCS: 99281; 99282

== ENCOUNTER 2019-03-05 19:37 | Emergency (ER) | payer OTHER, SELFPAY ==
[2017-09-21 05:35] VITALS: BMI 19.5
[2019-03-05 20:15] VITALS: BP 108/67; PULSE 74; RESP 20; TEMP 36.8; O2SAT 99
[2019-03-05 20:23] VITALS: BP 108/67; PULSE 77; O2SAT 98
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
--- NOTE | 2019-03-05 20:39 | PC.NURSE ---
was called by ed registration that patient was passing out. went to check on patient. stayed with her until the room was clean and available. patient did slump over the rt arm of chair. when i turned her towards the door to come back into the ed pt started moving her arms to the wheels and step walking her feet forward. patient was able to ambulate 4 feet to the bed from the wheelchair with only standby assistance.
--- NOTE | 2019-03-05 20:48 | DI.CT.S_ITS ---
PROCEDURE: CT ABDOMEN PELVIS W CON INDICATIONS: vomiting and diarrhea, mainly vomiting TECHNIQUE: After the administration of intravenous contrast, 5 mm thick sections acquired from the diaphragm to the symphysis. 5 mm coronal and sagittal reformats were acquired. For radiation dose reduction, the following was used: automated exposure control, adjustment of mA and/or kV according to patient size. COMPARISON: None. FINDINGS: Image quality: Excellent. ABDOMEN: Lung bases: There is mild dependent atelectasis. Heart size is normal. Solid organs: Evaluation of the liver demonstrates no focal hepatic lesions. The gallbladder demonstrates multiple cluster calcified dependent gallstones. No gallbladder wall thickening or pericholecystic fluid. Biliary system is non-dilated. Pancreas enhances normally. No peripancreatic fat stranding or fluid collections. No pancreatic duct dilatation. The spleen is normal in size. No adrenal nodules. Kidneys demonstrate no hydronephrosis. Peritoneum and bowel: The gastric wall is mildly prominent in thickness although this likely reflects incomplete distention. Bowel loops demonstrate normal wall thickness and caliber. The appendix is mildly prominent but appears normal in caliber without wall thickening or definite periappendiceal inflammatory fat stranding. There is colonic diverticulosis without acute diverticulitis. No free fluid or air. Nodes and vessels: No retroperitoneal or mesenteric adenopathy by size criteria. Aorta and inferior vena cava are normal in size. Miscellaneous: No ventral hernias. PELVIS: Genitourinary: Bladder wall thickness is normal. There is heterogeneous enlargement of the uterus compatible with multiple fibroids. Miscellaneous: No inguinal hernias or adenopathy. Bones: No suspicious bony lesions. No vertebral body compression fractures. IMPRESSION: 1. No definite acute intra-abdominal abnormality. 2. Cholelithiasis without evidence of cholecystitis. 3. No definite evidence of appendicitis. 4. Diverticulosis without acute diverticulitis. 5. Enlarged heterogeneous fibroid uterus. Concordant with preliminary interpretation. Dictated by: Kike Dunlap M.D. on 03/06/2019 at 7:18 Approved by: Kike Dunlpa M.D. on 03/06/2019 at 7:22
[2019-03-05 21:07] LABS: Add Manual Diff / Slide Review NO; Basophils Absolute Auto 0 /uL (0-100); Basophils Percent Auto 0.2 % (0-2); Eosinophils Absolute Auto 0 /uL (0-450); Hematocrit 44.9 % (36-46); Hemoglobin 15.5 g/dL (12.0-16.0); Lymphocytes Absolute Auto 500 /uL (1100-4500); Lymphocytes Percent Auto 8.9 % (25-40); Mean Corpuscular HGB Conc 34.5 % (30-36); Mean Corpuscular Hemoglobin 30.4 PG (26-34); Mean Corpuscular Volume 88.2 fL (80-100); Monocytes Absolute Auto 500 /uL (0-900); Monocytes Percent Auto 9.1 % (3-14); Neutrophils Absolute Auto 4100 /uL (1500-7000); Neutrophils Percent Auto 81.8 % (50-75); Platelet Count 152 X10^3/uL (150-400); Red Blood Cell Count 5.09 X10^6/uL (4.0-5.2); Red Cell Distribution Width 13.2 % (11.6-14.8); White Blood Cell Count 5.1 X10^3/uL (4.5-11.0)
[2019-03-05] MEDS: ONDANSETRON 4 MG/2 ML INJ IV ×2 (21:09→22:35)
[2019-03-05] MEDS: SODIUM CHLORIDE 0.9% 1,000 ML 1000 ML IV ×2 (21:09→23:40)
--- NOTE | 2019-03-05 21:10 | PC.NURSE ---
meds administered by YAN Copeland
[2019-03-05 21:55] LABS: Alanine Aminotransferase 31 IU/L (<35); Albumin 4.1 g/dL (3.5-5.0); Albumin Globulin Ratio 1.3 (1.0-2.8); Alkaline Phosphatase 70 U/L (38-126); Aspartate Aminotransferase 63 IU/L (14-36); Bilirubin Total 0.6 mg/dL (0.2-1.3); Blood Urea Nitrogen 21 mg/dL (7-17); Carbon Dioxide 23 mmol/L (22-32); Chloride 100 mmol/L (98-107); Estimated Glomerular Filt Rate 56.6 mL/min (>60); Globulin 3.1 g/dL (1.7-4.1); Glucose 95 mg/dL (80-110); HEMOLYSIS 48 (0-50); Lipase 337 U/L (23-300); Potassium 3.5 mmol/L (3.4-5.1); Sodium 134 mmol/L (137-145); Total Protein 7.2 g/dL (6.3-8.2)
[2019-03-05 23:56] LABS: Bacteria Urine Many (>30); Culture Indicated Urine Specimen Cultured; Mucus Urine 1+ (Negative); RBC Urine 0-1/HPF (0-5/HPF); Squamous Epithelial Cell Urine 1-5 /HPF (0-5/HPF); WBC Urine 10-30/HPF (0-5/HPF)
[2019-03-06] VITALS: BP 106/62; PULSE 58; RESP 17; O2SAT 94
[2019-03-06 01:00] VITALS: BP 101/60; PULSE 63; RESP 17; O2SAT 95
[2019-03-06 02:00] VITALS: BP 93/57; PULSE 58; RESP 17; O2SAT 92
[2019-03-06 03:09] VITALS: BP 106/60; PULSE 60; RESP 17; O2SAT 93
[2019-03-06] MEDS: ONDANSETRON 4 MG ODT PREPACK 1 BOTTLE MISC (03:26)
[2019-03-06 03:30] VITALS: BP 106/60; PULSE 67; RESP 15; O2SAT 94
== END 2019-03-06 03:31 | disposition home or self-care (01) ==
PROVIDERS: Emergency Provider Emergency Medicine
DX: R11.10 Vomiting, unspecified (principal); R50.9 Fever, unspecified; R19.7 Diarrhea, unspecified
CPT/HCPCS: 36415; 74177; 80053; 81003; 81015; 83690; 85025; 87086; 93005; 93010; 96361; 96374; 96376; 99284; J2405; Q9967

== ENCOUNTER 2022-03-24 18:10 | Emergency (ER) | payer OTHER, SELFPAY ==
[2017-09-21 05:35] VITALS: BMI 19.5
[2022-03-24 18:50] VITALS: BP 138/60; PULSE 87; RESP 18; TEMP 36.6; O2SAT 99; BMI 23.9
--- NOTE | 2022-03-24 19:24 | DI.RAD.S_ITS ---
PROCEDURE: XR HAND RT MIN 3V INDICATIONS: Cat bite, infected TECHNIQUE: 3 views of the hand(s) acquired. COMPARISON: None. FINDINGS: Bones: No fractures or dislocations. Carpal bones are normally aligned. No suspicious bony lesions. Soft tissues: No suspicious soft tissue calcifications. IMPRESSION: Soft tissue swelling about the distal 3rd digit without radiopaque foreign body or acute bone finding. Dictated by: Kiko Marshall M.D. on 03/24/2022 at 19:46 Approved by: Kiko Marshall M.D. on 03/24/2022 at 19:46
[2022-03-24 19:52] LABS: Add Manual Diff / Slide Review NO; Basophils Absolute Auto 100 /uL (0-100); Basophils Percent Auto 0.5 % (0-2); Eosinophils Absolute Auto 0 /uL (0-450); Eosinophils Percent Auto 0.1 % (2-4); Hemoglobin 14.8 g/dL (12.0-16.0); Lymphocytes Absolute Auto 1300 /uL (1100-4500); Lymphocytes Percent Auto 12.6 % (25-40); Mean Corpuscular HGB Conc 33.5 % (30-36); Mean Corpuscular Hemoglobin 30.7 PG (26-34); Mean Corpuscular Volume 91.5 fL (80-100); Monocytes Absolute Auto 500 /uL (0-900); Monocytes Percent Auto 4.8 % (3-14); Neutrophils Absolute Auto 8400 /uL (1500-7000); Platelet Count 293 X10^3/uL (150-400); Prothrombin Time 11.7 SECONDS (10.1-12.7); Red Blood Cell Count 4.81 X10^6/uL (4.0-5.2); Red Cell Distribution Width 12.5 % (11.6-14.8); White Blood Cell Count 10.2 X10^3/uL (4.5-11.0)
[2022-03-24 19:53] LABS: Lactate (Lactic Acid) 1.3 mmol/L (0.7-2.1); PTT Partial Thromboplastin Tim 29 SECONDS (26-36)
[2022-03-24 19:55] LABS: Alanine Aminotransferase 33 IU/L (<35); Albumin 4.7 g/dL (3.5-5.0); Albumin Globulin Ratio 1.1 (1.0-2.8); Alkaline Phosphatase 94 U/L (38-126); Aspartate Aminotransferase 33 IU/L (14-36); BUN Creatinine Ratio 28.2 (6-22); Bilirubin Total 0.4 mg/dL (0.2-1.3); Blood Urea Nitrogen 24 mg/dL (7-17); Calcium 9.8 mg/dL (8.4-10.2); Carbon Dioxide 28 mmol/L (22-32); Chloride 99 mmol/L (98-107); Estimated Glomerular Filt Rate > 60 mL/min (>60); Globulin 4.1 g/dL (1.7-4.1); Glucose 97 mg/dL (80-110); HEMOLYSIS 19 (0-50); Lipase 94 U/L (23-300); Potassium 3.8 mmol/L (3.4-5.1); Sodium 138 mmol/L (137-145); Total Protein 8.8 g/dL (6.3-8.2)
[2022-03-24] MEDS: IBUPROFEN 400 MG TABLET 800 MG PO (20:02)
[2022-03-24 20:11] LABS: Procalcitonin 0.07 ng/mL (<0.5)
[2022-03-24] MEDS: AMOXICILLIN/CLAV 875/125 MG 1 TAB PO (23:03)
--- NOTE | 2022-03-24 23:45 | ED_ITS ---
HPI - Skin/Abscess/Foreign Bdy <VENTURA Chow - Last Filed: 03/30/22 15:28> General Chief complaint: Skin/Abscess/Foreign Body Stated complaint: finger infection Time Seen by Provider: 03/24/22 22:43 Source: patient Mode of arrival: Ambulatory Limitations: no limitations History of Present Illness HPI narrative: This is a 62-year-old female who presents to the emergency department with worsening infection to her left hand 3rd digit 1 week after she should it in a car door, had a cat bite to the tip of it, completed 5 days of Augmentin and presents 2 days after that with worsening edema, pain, states that she is not able to bend her finger at all now. She denies any fever, chills, swelling of her arm, redness or streaking up her arm, numbness or tingling, states that her tetanus is up-to-date. She had previous x-ray denies foreign body, states that she was seen at [facility], they prescribed 5 days of Augmentin and she does not have any topical antibiotic ointment home. Related Data Home Medications Medication Instructions Recorded Confirmed levothyroxine 88 mcg tablet 88 mcg PO DAILY ##0 10/20/16 09/21/17 (Synthroid) Previous Rx's Medication Instructions Recorded ondansetron 4 mg disintegrating 8 mg PO TID PRN Nausea #6 tabs 09/23/17 tablet amoxicillin 875 mg-potassium 1 tab PO BID #20 tabs 03/24/22 clavulanate 125 mg tablet mupirocin 2 % topical ointment 1 applic topical DAILY #22 grams 03/24/22 Allergies Allergy/AdvReac Type Severity Reaction Status Date / Time Sulfa (Sulfonamide Allergy Intermediate Verified 03/25/22 18:22 Antibiotics) [SULFA (SULFONAMIDE ANTIBIOTICS)] NARCOTICS Allergy Intermediate Uncoded 03/25/22 18:22 STEROIDS Allergy Intermediate Uncoded 03/25/22 18:22 Review of Systems <VENTURA Chow - Last Filed: 03/30/22 15:28> Review of Systems ROS Unobtainable: All systems reviewed & are unremarkable except as noted in HPI and below Patient History <VENTURA Chow - Last Filed: 03/30/22 15:28> Medical History Acute UTI Asthma exacerbation in COPD Social History household members: children and friend(s) Smoking Status: Never smoker Smoking Status: Never smoker alcohol intake frequency: holidays/special occasions only Substance Use Type: does not use Exam <VENTURA Chow - Last Filed: 03/30/22 15:28> Narrative Exam Narrative: Reviewed vitals signs and nursing notes. General: cooperative, comfortable, in no acute distress, well groomed, good historian, afebrile MSK: moves all extremities, neurovascularly intact, no weakness, normal tone, left 3rd digit is edematous, erythematous at the PIP joint and distally, fluctuance and purulence notable superficially on the volar aspect over the D IP joint. This was drained with needle aspiration, patient tolerated well, small blister filled with pus with intact dermis undermine. Sensation present through all finger, patient is not able to flex or extend at the PIP or D IP joint but is able to flex at the MCP joint. There is no erythema or streaking up her forearm, her hand is without erythema Skin: brisk capillary refill, without pallor or erythema please see above for wound, no other wounds Neuro: normal speech and cognition, A&O x3, ambulatory, clear speech Psych: mental status is grossly normal, congruent mood, normal affect, pleasant and cooperative Initial Vital Signs Initial Vital Signs: Vital Signs Temperature 98 F 03/24/22 18:50 Pulse Rate 87 03/24/22 18:50 Respiratory Rate 18 03/24/22 18:50 Blood Pressure 138/60 03/24/22 18:50 Pulse Oximetry 99 03/24/22 18:50 Oxygen Delivery Method 03/24/22 18:50 <DO Alessia Lin Last Filed: 04/04/22 03:12> Initial Vital Signs Initial Vital Signs: Vital Signs Temperature 98 F 03/24/22 18:50 Pulse Rate 87 03/24/22 18:50 Respiratory Rate 18 03/24/22 18:50 Blood Pressure 138/60 03/24/22 18:50 Pulse Oximetry 99 03/24/22 18:50 Oxygen Delivery Method 03/24/22 18:50 <DO Alessia Ibarra Filed: 04/02/22 07:11> Initial Vital Signs Initial Vital Signs: Vital Signs Temperature 98 F 03/24/22 18:50 Pulse Rate 87 03/24/22 18:50 Respiratory Rate 18 03/24/22 18:50 Blood Pressure 138/60 03/24/22 18:50 Pulse Oximetry 99 03/24/22 18:50 Oxygen Delivery Method 03/24/22 18:50 Procedures <VENTURA Chow - Last Filed: 03/30/22 15:28> Abscess I/D I&D #1: Site: hand Side (if applicable): left Local Anesthetic: lidocaine 2% Technique: needle aspiration Amount of fluid expressed (mL): 3 Irrigation: Yes Packing used?: none Course <VENTURA Chow - Last Filed: 03/30/22 15:28> Orders Ordered: Discontinued Medications Amoxicillin/Clavulanate Potassium (Amoxicillin/Clav 875/125 Mg) 1 tab PO NOW ONE Stop: 03/24/22 22:54 Last Admin: 03/24/22 23:03 Dose: 1 tab Documented By: PREMA Doxycycline Hyclate (Doxycycline Hyclate 100 Mg Tablet) 100 mg PO NOW ONE Stop: 03/24/22 22:50 Last Admin: 03/24/22 22:59 Dose: Not Given Documented By: PREMA Ibuprofen (Ibuprofen 400 Mg Tablet) 800 mg PO NOW ONE Stop: 03/24/22 19:42 Last Admin: 03/24/22 20:02 Dose: 400 mg Documented By: RENA Lidocaine HCl (Lidocaine 2% Inj Sdv) 5 ml INJ INTRA-OP ONE Stop: 03/24/22 22:50 Lidocaine HCl (Lidocaine 2% Inj Mdv 20ml) 20 ml INJ INTRA-OP ONE Stop: 03/24/22 22:50 Vital Signs Vital signs: Vital Signs - 8 hr 03/24/22 18:50 Temperature 98 F Pulse Rate 87 Respiratory Rate 18 Blood Pressure 138/60 Pulse Oximetry 99 Oxygen Delivery Method Room Air <Haleigh Chiang DO - Last Filed: 04/04/22 03:12> Orders Ordered: Discontinued Medications Amoxicillin/Clavulanate Potassium (Amoxicillin/Clav 875/125 Mg) 1 tab PO NOW ONE Stop: 03/24/22 22:54 Last Admin: 03/24/22 23:03 Dose: 1 tab Documented By: PREMA Doxycycline Hyclate (Doxycycline Hyclate 100 Mg Tablet) 100 mg PO NOW ONE Stop: 03/24/22 22:50 Last Admin: 03/24/22 22:59 Dose: Not Given Documented By: PREMA Ibuprofen (Ibuprofen 400 Mg Tablet) 800 mg PO NOW ONE Stop: 03/24/22 19:42 Last Admin: 03/24/22 20:02 Dose: 400 mg Documented By: RENA Lidocaine HCl (Lidocaine 2% Inj Sdv) 5 ml INJ INTRA-OP ONE Stop: 03/24/22 22:50 Lidocaine HCl (Lidocaine 2% Inj Mdv 20ml) 20 ml INJ INTRA-OP ONE Stop: 03/24/22 22:50 Vital Signs Vital signs: Vital Signs - 8 hr 03/24/22 18:50 Temperature 98 F Pulse Rate 87 Respiratory Rate 18 Blood Pressure 138/60 Pulse Oximetry 99 Oxygen Delivery Method Room Air <Shane Pena DO - Last Filed: 04/02/22 07:11> Orders Ordered: Discontinued Medications Amoxicillin/Clavulanate Potassium (Amoxicillin/Clav 875/125 Mg) 1 tab PO NOW ONE Stop: 03/24/22 22:54 Last Admin: 03/24/22 23:03 Dose: 1 tab Documented By: PREMA Doxycycline Hyclate (Doxycycline Hyclate 100 Mg Tablet) 100 mg PO NOW ONE Stop: 03/24/22 22:50 Last Admin: 03/24/22 22:59 Dose: Not Given Documented By: PREMA Ibuprofen (Ibuprofen 400 Mg Tablet) 800 mg PO NOW ONE Stop: 03/24/22 19:42 Last Admin: 03/24/22 20:02 Dose: 400 mg Documented By: RENA Lidocaine HCl (Lidocaine 2% Inj Sdv) 5 ml INJ INTRA-OP ONE Stop: 03/24/22 22:50 Lidocaine HCl (Lidocaine 2% Inj Mdv 20ml) 20 ml INJ INTRA-OP ONE Stop: 03/24/22 22:50 Vital Signs Vital signs: Vital Signs - 8 hr 03/24/22 18:50 Temperature 98 F Pulse Rate 87 Respiratory Rate 18 Blood Pressure 138/60 Pulse Oximetry 99 Oxygen Delivery Method Room Air MDM - Skin/Abscess/Foreign Bdy <VENTURA Chow - Last Filed: 03/30/22 15:28> Lab Data Result diagrams: 03/24/22 19:20 03/24/22 19:20 Labs: Lab Results 03/24/22 03/24/22 03/24/22 Range/Units 19:20 19:20 19:20 WBC 10.2 (4.5-11.0) X10^3/uL RBC 4.81 (4.0-5.2) X10^6/uL Hgb 14.8 (12.0-16.0) g/dL Hct 44.0 (36-46) % MCV 91.5 (80-100) fL MCH 30.7 (26-34) PG MCHC 33.5 (30-36) % RDW 12.5 (11.6-14.8) % Plt Count 293 (150-400) X10^3/uL Neut % (Auto) 82.0 H (50-75) % Lymph % (Auto) 12.6 L (25-40) % [place] % (Auto) 4.8 (3-14) % Eos % (Auto) 0.1 L (2-4) % Baso % (Auto) 0.5 (0-2) % Neut # (Auto) 8400 H (3378-6036) /uL Lymph # (Auto) 1300 (0161-4475) /uL [place] # (Auto) 500 (0-900) /uL Eos # (Auto) 0 (0-450) /uL Baso # (Auto) 100 (0-100) /uL PT 11.7 (10.1-12.7) SECONDS INR 1.0 (0.9-1.3) APTT 29 (26-36) SECONDS Sodium 138 (137-145) mmol/L Potassium 3.8 (3.4-5.1) mmol/L Chloride 99 (98-107) mmol/L Carbon Dioxide 28 (22-32) mmol/L BUN 24 H (7-17) mg/dL Creatinine 0.85 (0.52-1.04) mg/dL Estimated GFR > 60 (>60) mL/min BUN/Creatinine Ratio 28.2 H (6-22) Glucose 97 (80-110) mg/dL Lactate (0.7-2.1) mmol/L Calcium 9.8 (8.4-10.2) mg/dL Total Bilirubin 0.4 (0.2-1.3) mg/dL AST 33 (14-36) IU/L ALT 33 (<35) IU/L Alkaline Phosphatase 94 (38-126) U/L Total Protein 8.8 H (6.3-8.2) g/dL Albumin 4.7 (3.5-5.0) g/dL Globulin 4.1 (1.7-4.1) g/dL Albumin/Globulin Ratio 1.1 (1.0-2.8) Lipase 94 (23-300) U/L Procalcitonin 0.07 (<0.5) ng/mL 03/24/22 Range/Units 19:20 WBC (4.5-11.0) X10^3/uL RBC (4.0-5.2) X10^6/uL Hgb (12.0-16.0) g/dL Hct (36-46) % MCV (80-100) fL MCH (26-34) PG MCHC (30-36) % RDW (11.6-14.8) % Plt Count (150-400) X10^3/uL Neut % (Auto) (50-75) % Lymph % (Auto) (25-40) % [place] % (Auto) (3-14) % Eos % (Auto) (2-4) % Baso % (Auto) (0-2) % Neut # (Auto) (5036-5918) /uL Lymph # (Auto) (9213-7656) /uL [place] # (Auto) (0-900) /uL Eos # (Auto) (0-450) /uL Baso # (Auto) (0-100) /uL PT (10.1-12.7) SECONDS INR (0.9-1.3) APTT (26-36) SECONDS Sodium (137-145) mmol/L Potassium (3.4-5.1) mmol/L Chloride (98-107) mmol/L Carbon Dioxide (22-32) mmol/L BUN (7-17) mg/dL Creatinine (0.52-1.04) mg/dL Estimated GFR (>60) mL/min BUN/Creatinine Ratio (6-22) Glucose (80-110) mg/dL Lactate 1.3 (0.7-2.1) mmol/L Calcium (8.4-10.2) mg/dL Total Bilirubin (0.2-1.3) mg/dL AST (14-36) IU/L ALT (<35) IU/L Alkaline Phosphatase (38-126) U/L Total Protein (6.3-8.2) g/dL Albumin (3.5-5.0) g/dL Globulin (1.7-4.1) g/dL Albumin/Globulin Ratio (1.0-2.8) Lipase (23-300) U/L Procalcitonin (<0.5) ng/mL Imaging Data Extremity x-ray #1: Radiologist's Impression: PROCEDURE:? XR HAND RT MIN 3V ? INDICATIONS:? Cat bite, infected ? TECHNIQUE:? 3 views of the hand(s) acquired.? ? COMPARISON:? None. ? FINDINGS:? ? Bones:? No fractures or dislocations.? Carpal bones are normally aligned.? No suspicious bony lesions.? ? Soft tissues:? No suspicious soft tissue calcifications.? ? ? IMPRESSION:? Soft tissue swelling about the distal 3rd digit without radiopaque foreign body or acute bone finding.? ? ? Dictated by: Kiko Marshall M.D. on 03/24/2022 at 19:46 ? ? Approved by: Kiko Marshall M.D. on 03/24/2022 at 19:46 ? MDM Narrative Medical decision making narrative: Course of Care: Hand x-ray is negative for soft tissue gas, radiopaque foreign body or acute bony abnormality with soft tissue swelling over the distal 3rd digit Discussion of Management with Other Physicians or Health Professionals: Consultation with Dr. Johnson regarding patient's finger infection with concern for need for I&D. He recommends that patient call the clinic tomorrow and schedule close follow-up for evaluation and continue treatment with Augmentin, no need for doxycycline. Incision and drainage of superficial purulence fluid collection completed by myself without complication. Wound culture obtained and is pending left open to drain and heal by secondary intention Patient's symptoms improved over duration of stay with above-stated therapies. This is a 62-year-old female who presents to the emergency department with worsening infection to her left hand 3rd digit 1 week after she should it in a car door, had a cat bite to the tip of it, completed 5 days of Augmentin and presents 2 days after that with worsening edema, pain, states that she is not able to bend her finger at all now. Differential diagnoses include, but are not limited to: Flexor tenosynovitis, foreign body, cellulitis, necrotizing fasciitis, other bacterial infection. MIPS: This encounter doesn't have any diagnosis associated with MIPS criteria. Social determinants of health that may impact treatment or disposition: None, patient can follow-up, over her close tonight will treat with antibiotics here in the emergency department Vital Signs: I, the ED provider, reviewed the patient?s vital signs, past medical records and encounters if available, and nursing notes. I have spoken with the patient/family and discussed today?s findings whom verbalize understanding. Counseling was provided regarding the diagnosis and prognosis, and specific details were provided for the plan of care. Questions are addressed and there is agreement with the plan and for follow-up. Patient is appropriate for outpatient management. Portions of this chart have been created with [employer] voice recognition software. Occasional wrong word or sound alike substitutions may have occurred due to the inherent limitations of this software. I, VENTURA Hamilton, personally performed the services described in the documentation, and it accurately records my words and actions. I collaborated with the ED attending physician for MIGUELINA level 2, 3, and some level 4s as needed Electronically signed by: VENTURA Hamilton <Haleigh Chiang, DO - Last Filed: 04/04/22 03:12> Lab Data Labs: Lab Results 03/24/22 03/24/22 03/24/22 Range/Units 19:20 19:20 19:20 WBC 10.2 (4.5-11.0) X10^3/uL RBC 4.81 (4.0-5.2) X10^6/uL Hgb 14.8 (12.0-16.0) g/dL Hct 44.0 (36-46) % MCV 91.5 (80-100) fL MCH 30.7 (26-34) PG MCHC 33.5 (30-36) % RDW 12.5 (11.6-14.8) % Plt Count 293 (150-400) X10^3/uL Neut % (Auto) 82.0 H (50-75) % Lymph % (Auto) 12.6 L (25-40) % [place] % (Auto) 4.8 (3-14) % Eos % (Auto) 0.1 L (2-4) % Baso % (Auto) 0.5 (0-2) % Neut # (Auto) 8400 H (7150-8396) /uL Lymph # (Auto) 1300 (4863-6575) /uL [place] # (Auto) 500 (0-900) /uL Eos # (Auto) 0 (0-450) /uL Baso # (Auto) 100 (0-100) /uL PT 11.7 (10.1-12.7) SECONDS INR 1.0 (0.9-1.3) APTT 29 (26-36) SECONDS Sodium 138 (137-145) mmol/L Potassium 3.8 (3.4-5.1) mmol/L Chloride 99 (98-107) mmol/L Carbon Dioxide 28 (22-32) mmol/L BUN 24 H (7-17) mg/dL Creatinine 0.85 (0.52-1.04) mg/dL Estimated GFR > 60 (>60) mL/min BUN/Creatinine Ratio 28.2 H (6-22) Glucose 97 (80-110) mg/dL Lactate (0.7-2.1) mmol/L Calcium 9.8 (8.4-10.2) mg/dL Total Bilirubin 0.4 (0.2-1.3) mg/dL AST 33 (14-36) IU/L ALT 33 (<35) IU/L Alkaline Phosphatase 94 (38-126) U/L Total Protein 8.8 H (6.3-8.2) g/dL Albumin 4.7 (3.5-5.0) g/dL Globulin 4.1 (1.7-4.1) g/dL Albumin/Globulin Ratio 1.1 (1.0-2.8) Lipase 94 (23-300) U/L Procalcitonin 0.07 (<0.5) ng/mL 03/24/22 Range/Units 19:20 WBC (4.5-11.0) X10^3/uL RBC (4.0-5.2) X10^6/uL Hgb (12.0-16.0) g/dL Hct (36-46) % MCV (80-100) fL MCH (26-34) PG MCHC (30-36) % RDW (11.6-14.8) % Plt Count (150-400) X10^3/uL Neut % (Auto) (50-75) % Lymph % (Auto) (25-40) % [place] % (Auto) (3-14) % Eos % (Auto) (2-4) % Baso % (Auto) (0-2) % Neut # (Auto) (3291-6139) /uL Lymph # (Auto) (1824-3215) /uL [place] # (Auto) (0-900) /uL Eos # (Auto) (0-450) /uL Baso # (Auto) (0-100) /uL PT (10.1-12.7) SECONDS INR (0.9-1.3) APTT (26-36) SECONDS Sodium (137-145) mmol/L Potassium (3.4-5.1) mmol/L Chloride (98-107) mmol/L Carbon Dioxide (22-32) mmol/L BUN (7-17) mg/dL Creatinine (0.52-1.04) mg/dL Estimated GFR (>60) mL/min BUN/Creatinine Ratio (6-22) Glucose (80-110) mg/dL Lactate 1.3 (0.7-2.1) mmol/L Calcium (8.4-10.2) mg/dL Total Bilirubin (0.2-1.3) mg/dL AST (14-36) IU/L ALT (<35) IU/L Alkaline Phosphatase (38-126) U/L Total Protein (6.3-8.2) g/dL Albumin (3.5-5.0) g/dL Globulin (1.7-4.1) g/dL Albumin/Globulin Ratio (1.0-2.8) Lipase (23-300) U/L Procalcitonin (<0.5) ng/mL <Shane Pena DO - Last Filed: 04/02/22 07:11> Lab Data Labs: Lab Results 03/24/22 03/24/22 03/24/22 Range/Units 19:20 19:20 19:20 WBC 10.2 (4.5-11.0) X10^3/uL RBC 4.81 (4.0-5.2) X10^6/uL Hgb 14.8 (12.0-16.0) g/dL Hct 44.0 (36-46) % MCV 91.5 (80-100) fL MCH 30.7 (26-34) PG MCHC 33.5 (30-36) % RDW 12.5 (11.6-14.8) % Plt Count 293 (150-400) X10^3/uL Neut % (Auto) 82.0 H (50-75) % Lymph % (Auto) 12.6 L (25-40) % [place] % (Auto) 4.8 (3-14) % Eos % (Auto) 0.1 L (2-4) % Baso % (Auto) 0.5 (0-2) % Neut # (Auto) 8400 H (0525-2789) /uL Lymph # (Auto) 1300 (0245-4557) /uL [place] # (Auto) 500 (0-900) /uL Eos # (Auto) 0 (0-450) /uL Baso # (Auto) 100 (0-100) /uL PT 11.7 (10.1-12.7) SECONDS INR 1.0 (0.9-1.3) APTT 29 (26-36) SECONDS Sodium 138 (137-145) mmol/L Potassium 3.8 (3.4-5.1) mmol/L Chloride 99 (98-107) mmol/L Carbon Dioxide 28 (22-32) mmol/L BUN 24 H (7-17) mg/dL Creatinine 0.85 (0.52-1.04) mg/dL Estimated GFR > 60 (>60) mL/min BUN/Creatinine Ratio 28.2 H (6-22) Glucose 97 (80-110) mg/dL Lactate (0.7-2.1) mmol/L Calcium 9.8 (8.4-10.2) mg/dL Total Bilirubin 0.4 (0.2-1.3) mg/dL AST 33 (14-36) IU/L ALT 33 (<35) IU/L Alkaline Phosphatase 94 (38-126) U/L Total Protein 8.8 H (6.3-8.2) g/dL Albumin 4.7 (3.5-5.0) g/dL Globulin 4.1 (1.7-4.1) g/dL Albumin/Globulin Ratio 1.1 (1.0-2.8) Lipase 94 (23-300) U/L Procalcitonin 0.07 (<0.5) ng/mL 03/24/22 Range/Units 19:20 WBC (4.5-11.0) X10^3/uL RBC (4.0-5.2) X10^6/uL Hgb (12.0-16.0) g/dL Hct (36-46) % MCV (80-100) fL MCH (26-34) PG MCHC (30-36) % RDW (11.6-14.8) % Plt Count (150-400) X10^3/uL Neut % (Auto) (50-75) % Lymph % (Auto) (25-40) % [place] % (Auto) (3-14) % Eos % (Auto) (2-4) % Baso % (Auto) (0-2) % Neut # (Auto) (3548-8353) /uL Lymph # (Auto) (9196-5208) /uL [place] # (Auto) (0-900) /uL Eos # (Auto) (0-450) /uL Baso # (Auto) (0-100) /uL PT (10.1-12.7) SECONDS INR (0.9-1.3) APTT (26-36) SECONDS Sodium (137-145) mmol/L Potassium (3.4-5.1) mmol/L Chloride (98-107) mmol/L Carbon Dioxide (22-32) mmol/L BUN (7-17) mg/dL Creatinine (0.52-1.04) mg/dL Estimated GFR (>60) mL/min BUN/Creatinine Ratio (6-22) Glucose (80-110) mg/dL Lactate 1.3 (0.7-2.1) mmol/L Calcium (8.4-10.2) mg/dL Total Bilirubin (0.2-1.3) mg/dL AST (14-36) IU/L ALT (<35) IU/L Alkaline Phosphatase (38-126) U/L Total Protein (6.3-8.2) g/dL Albumin (3.5-5.0) g/dL Globulin (1.7-4.1) g/dL Albumin/Globulin Ratio (1.0-2.8) Lipase (23-300) U/L Procalcitonin (<0.5) ng/mL Discharge Plan Departure Patient Disposition: Home Clinical Impression: Infected puncture wound of finger Qualifiers: Encounter type: initial encounter Qualified Code(s): S61.239A - Puncture wound without foreign body of unspecified finger without damage to nail, initial encounter Cat bite Qualifiers: Encounter type: initial encounter Qualified Code(s): W55.01XA - Bitten by cat, initial encounter Instructions: Animal Bites, DI for Wound Infection, DI for Skin Abscess Activity Restrictions/Additional Instructions: *You have been diagnosed with traumatic injury to your finger, a cat bite to the same finger with subsequent wound infection, swelling and purulence fluid accumulation underneath the superficial layer of skin. Please call the orthopedic office tomorrow morning and schedule an appointment with Dr. Johnson for follow-up. Please pick remover your antibiotics and continue taking for the next 10 days. Keep your finger elevated, warm compresses to allow for ongoing drainage, take Tylenol and ibuprofen as needed for your pain, stay hydrated and your primary care provider know that you have this finger infection. The x-ray does not show any dangerous findings, thank you for coming in for evaluation. We will call you if the wound culture grows out bacteria that is not covered on this antibiotic. I have sent it to the [facility] pharmacy *What to do: *Please continue to take your regular medications as directed. [ x] New medication prescriptions sent to your pharmacy: [ DOD] [ ] New medication written as a paper prescription [ ] No new medications given *Please follow up with your primary care provider in 2-3 days, call for an appointment. Let them know you were seen in the Emergency Department and that we asked that you be seen for follow-up. We will electronically transmit a record of today's note if your PCP is in our system *If you do not have a primary care provider please contact [phone] to establish care with one of the [facility] primary care providers. *Return to Emergency Department if you should have any new, worsening, or concerning symptoms, such as [fever greater than 101F, chills, worsening pain, persistent vomiting or other bothersome symptoms]. Prescriptions: New amoxicillin-pot clavulanate 875-125 mg tablet 1 tab PO BID Qty: 20 0RF mupirocin 2 % ointment 1 applic topical DAILY Qty: 22 0RF No Action levothyroxine [Synthroid] 88 MCG tablet 88 mcg PO DAILY Qty: 0 ondansetron 4 mg Tablet,Disintegrating 8 mg PO TID PRN (Reason: Nausea) Qty: 6 0RF Referrals: Gurwinder Christensen MD [Primary Care Provider] - Tommy Johnson MD [Physician] - As soon as possible <Haleigh Chiang DO - Last Filed: 04/04/22 03:12> [facility] ED Attending [facility] Attestation: Dr Pena Co-Sign Statement: I was available for consultation during this patient's emergency department visit. This chart is signed by myself for administrative purposes only. I did not have direct contact with this patient during this visit. They were seen independently by the APC. Dr. Chiang :Patient case was discussed with myself. Patient seen and evaluated independently by myself. Patient does appear to have an abscess on the distal end of the finger. She has a infection but does not appear to have tenosynovitis. Case was discussed with Dr. Johnson. We had discussed doxycycline as patient is higher risk for some alternative organisms secondary to cat bite, slamming her finger in the door and caring for chickens daily. Also discussed with patient about admission for IV antibiotic and possible surgical drainage. Patient is very reluctant to do so secondary need to care for her animals. Patient case was discussed with Dr. Johnson they made decision to continue A ugmentin. Patient did have I and D in the department with purulent fluid drained. <Shane Pena DO - Last Filed: 04/02/22 07:11> [facility] ED Attending [facility] Attestation: Dr Pena Co-Sign Statement: I was available for consultation during this patient's emergency department visit. This chart is signed by myself for administrative purposes only. I did not have direct contact with this patient during this visit. They were seen independently by the APC.
--- NOTE | 2022-03-30 15:55 | PC.NURSE ---
called and spoke with patient regarding her wound. pt reports improving infection but that [facility] will not debride wound and she still needs that done and skin around wound removed. reviewed these details with ed provider Dr Carlson and will be requesting f/u with wound care, h/p being sent to [facility], wound care, and orthopedics. will call patient back and explain need and provided wound care office information to facilitate follow up and have our battery charger tester follow up tomorrow with patient and wound care clinic if needed.
== END 2022-03-24 23:35 | disposition home or self-care (01) ==
PROVIDERS: Emergency Medicine; Emergency Provider Nurse Practitioner Critical Care Medicine
DX: S61.233A Puncture wound without foreign body of left middle finger without damage to nail, initial encounter (principal); W55.01XA Bitten by cat, initial encounter
CPT/HCPCS: 36415; 73130; 80053; 83605; 83690; 84145; 85025; 85610; 85730; 87040; 87070; 87075; 87077; 87186; 87205; 99283; 99284

== ENCOUNTER 2022-03-25 18:00 | Emergency (ER) | payer OTHER, SELFPAY ==
[2017-09-21 05:35] VITALS: BMI 19.5
[2022-03-25 18:17] VITALS: BP 159/65; PULSE 85; RESP 18; TEMP 37.2; O2SAT 99; BMI 20.1
--- NOTE | 2022-03-25 19:08 | ED_ITS ---
HPI - Animal Bite General Chief Complaint: Animal Bite Stated Complaint: R Hand Mid Finger swollen, sent by for IV Time Seen by Provider: 03/25/22 18:04 Source: patient Mode of arrival: Ambulatory History of Present Illness HPI narrative: Patient is a 62-year-old female who several days ago was bit in the right finger by a cat. She was seen. Was given antibiotics. She describes it as Augmentin. She would only taken this for 5 days. She thought that maybe the symptoms were improving but then the antibiotics ran out and then symptoms started to worsen. She was seen here recently where she had pus drained from her finger. She was placed back on Augmentin. She now has prescription for total of 10 days. She states that there is redness and swelling to her right middle finger that extends up her hand. She feels like it has improved somewhat since yesterday in certainly the finger has improved since it was drained but she was told that she needed IV antibiotics. Related Data Home Medications Medication Instructions Recorded Confirmed levothyroxine 88 mcg tablet 88 mcg PO DAILY ##0 10/20/16 09/21/17 (Synthroid) Previous Rx's Medication Instructions Recorded ondansetron 4 mg disintegrating 8 mg PO TID PRN Nausea #6 tabs 09/23/17 tablet amoxicillin 875 mg-potassium 1 tab PO BID #20 tabs 03/24/22 clavulanate 125 mg tablet amoxicillin 875 mg-potassium 1 tab PO BID 10 days #20 tabs 03/24/22 clavulanate 125 mg tablet mupirocin 2 % topical ointment 1 applic topical DAILY #22 grams 03/24/22 Allergies Allergy/AdvReac Type Severity Reaction Status Date / Time Sulfa (Sulfonamide Allergy Intermediate Verified 03/25/22 18:22 Antibiotics) [SULFA (SULFONAMIDE ANTIBIOTICS)] NARCOTICS Allergy Intermediate Uncoded 03/25/22 18:22 STEROIDS Allergy Intermediate Uncoded 03/25/22 18:22 Review of Systems Constitutional Constitutional: Reports system reviewed and no additional complaints, except as documented Musculoskeletal Musculoskeletal: Reports system reviewed and no additional complaints, except as documented Integumentary/Breasts Skin/Breast: Reports system reviewed and no additional complaints, except as documented Neurologic Neurologic: Reports system reviewed and no additional complaints, except as d ocumented Hematologic/Lymphatic On Anticoagulants: No Patient History Medical History Acute UTI Asthma exacerbation in COPD Social History household members: children and friend(s) Smoking Status: Never smoker Smoking Status: Never smoker alcohol intake frequency: holidays/special occasions only Substance Use Type: does not use Exam Initial Vital Signs Initial Vital Signs: Vital Signs Temperature 98.9 F 03/25/22 18:17 Pulse Rate 85 03/25/22 18:17 Respiratory Rate 18 03/25/22 18:17 Blood Pressure 159/65 H 03/25/22 18:17 Pulse Oximetry 99 03/25/22 18:17 Oxygen Delivery Method 03/25/22 18:17 Const General: cooperative and comfortable HENMT Head: normal to inspection and normocephalic Cardio Pulses: radial pulses present on the right Skin Other: Redness gated mostly on the volar aspect of the right middle finger that extends up the hand just proximal to the wrist. Extrem Other: Swelling of the right middle finger. No tenderness along the flexor tendon. She is holding the finger in slight flexion but can extend and flex passively without discomfort. Mild swelling of the right hand. Course Vital Signs Vital signs: Vital Signs - 8 hr 03/25/22 18:17 Temperature 98.9 F Pulse Rate 85 Respiratory Rate 18 Blood Pressure 159/65 H Pulse Oximetry 99 Oxygen Delivery Method Room Air MDM - Animal Bite MDM Narrative Medical decision making narrative: Had a long discussion with the patient regarding her symptoms. Informed her that since it has been this long since the cat bite and that she is still having swelling to her right hand and also redness that extends above her wrist I did recommend that she be admitted to the hospital for IV antibiotics. 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 Informed her about the concern of the infection and that it is on her hand and worsening of the infection. She does admit that it has actually improved over the past 24 hours since she had the area drained and that she is back on antibiotics. Unfortunately there is not an antibiotic regimen that would allow her to come in to have a dose of antibiotics each day and then go home. We discussed options to include being admitted to the hospital in the risks and benefits of this but also being discharged home on antibiotics. It appeared that the 1st time that she was on Augmentin the symptoms were improving so I would necessarily have a reason to change that. After this long discussion and some time thinking about it she opted to be discharged home although she does state that she will watch the hand in if things worsen she would return to the emergency department knowing that at that point she would need to be admitted the hospital. Patient is alert oriented x3. GCS 15. Not wanting intoxicated in my opinion has the capacity to make these decisions. I also have low suspicion for flexor tenosynovitis given her exam today. Discharge Plan Departure Patient Disposition: Home Clinical Impression: Finger infection Instructions: DI for Animal Bites Activity Restrictions/Additional Instructions: I do recommend that you continue the antibiotics as directed. Per your request you would like to not be admitted to the hospital today. Because of this if your symptoms worsen over the next 12-24 to 48 hours please return to the emergency department for further evaluation. Prescriptions: No Action levothyroxine [Synthroid] 88 MCG tablet 88 mcg PO DAILY Qty: 0 ondansetron 4 mg Tablet,Disintegrating 8 mg PO TID PRN (Reason: Nausea) Qty: 6 0RF amoxicillin-pot clavulanate 875-125 mg tablet 1 tab PO BID Qty: 20 0RF amoxicillin-pot clavulanate 875-125 mg tablet 1 tab PO BID 10 Days Qty: 20 0RF mupirocin 2 % ointment 1 applic topical DAILY Qty: 22 0RF Referrals: Gurwinder Christensen MD [Primary Care Provider] - Stand Alone Forms: Patient Portal/API
--- NOTE | 2022-03-25 19:20 | PC.NURSE ---
Assumed care of pt at this time
--- NOTE | 2022-03-25 20:00 | PC.NURSE ---
Family to bedside
== END 2022-03-25 20:30 | disposition home or self-care (01) ==
PROVIDERS: Emergency Provider Emergency Medicine
DX: L08.9 Local infection of the skin and subcutaneous tissue, unspecified (principal)
CPT/HCPCS: 99281

== ENCOUNTER → 2022-04-09 10:43 | Outpatient (CLI) | payer OTHER, SELFPAY ==
[2017-09-21 05:35] VITALS: BMI 19.5
== END ==
PROVIDERS: Referring Provider Nurse Practitioner Family; Visit Provider Surgery
DX: S61.252A Open bite of right middle finger without damage to nail, initial encounter (principal); W55.01XA Bitten by cat, initial encounter; A28.0 Pasteurellosis
CPT/HCPCS: 11042; 87070; 87075; 87205; 99203; 99213

== ENCOUNTER → 2022-04-15 14:08 | Outpatient (CLI) | payer OTHER, SELFPAY ==
[2017-09-21 05:35] VITALS: BMI 19.5
== END ==
LOC: WC 14:09
PROVIDERS: Visit Provider Surgery
DX: S61.259A Open bite of unspecified finger without damage to nail, initial encounter (principal); A28.0 Pasteurellosis; W55.01XD Bitten by cat, subsequent encounter
CPT/HCPCS: 11042

== ENCOUNTER → 2022-04-22 13:19 | Outpatient (CLI) | payer OTHER, SELFPAY ==
[2017-09-21 05:35] VITALS: BMI 19.5
== END ==
PROVIDERS: Visit Provider Surgery
DX: A28.0 Pasteurellosis (principal); S61.202A Unspecified open wound of right middle finger without damage to nail, initial encounter; W55.01XD Bitten by cat, subsequent encounter
CPT/HCPCS: 11042

== ENCOUNTER → 2022-04-29 12:54 | Outpatient (CLI) | payer OTHER, SELFPAY ==
[2017-09-21 05:35] VITALS: BMI 19.5
== END ==
PROVIDERS: Visit Provider Surgery
DX: S61.259A Open bite of unspecified finger without damage to nail, initial encounter (principal); A28.0 Pasteurellosis; W55.01XD Bitten by cat, subsequent encounter
CPT/HCPCS: 97597

== ENCOUNTER → 2022-05-27 14:03 | Outpatient (CLI) | payer OTHER, SELFPAY ==
[2017-09-21 05:35] VITALS: BMI 19.5
== END ==
PROVIDERS: Visit Provider Surgery
DX: A28.0 Pasteurellosis (principal); W55.01XD Bitten by cat, subsequent encounter; S61.259D Open bite of unspecified finger without damage to nail, subsequent encounter
CPT/HCPCS: 97597; 99212; 99213

== ENCOUNTER → 2022-06-10 13:51 | Outpatient (CLI) | payer OTHER, SELFPAY ==
[2017-09-21 05:35] VITALS: BMI 19.5
== END ==
LOC: WC 13:51
PROVIDERS: Referring Provider Emergency Medicine; Visit Provider Surgery
DX: S61.259D Open bite of unspecified finger without damage to nail, subsequent encounter (principal)
CPT/HCPCS: 99212; 99213